=== PATIENT | female | born 1995 | race Caucasian/White ===

== ENCOUNTER 2018-04-24 13:57 | Emergency (ER) | payer SELFPAY ==
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
[2018-04-24] MEDS ORDERED: NS(*) 0.9% 50 ML BAG 50 ML ONE (14:50)
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
[2018-04-24 16:30] VITALS: BP 114/72
== END 2018-04-24 16:54 | disposition home or self-care (01) ==
LOC: ER 14:06
DX: R51 Headache (principal); M54.2 Cervicalgia; Y04.8XXA Assault by other bodily force, initial encounter
CPT/HCPCS: 70486; 70498; 99284; J7050; Q9967

== ENCOUNTER → 2018-04-24 | Outpatient (CLI) | payer SELFPAY | LOC: AMB 13:35 | PROVIDERS: ATTEND Nurse Practitioner | DX: S00.83XA Contusion of other part of head, initial encounter (principal); Y09 Assault by unspecified means | CPT/HCPCS: A0425; A0429 ==